=== PATIENT | female | born 1985 | race Caucasian/White ===

== ENCOUNTER 2018-10-26 16:48 | Day surgery (SDC) | payer SELFPAY ==
[~2018-10-26] VITALS: Ht 165.1 cm; Wt 90.0 kg
[2018-10-26] VITALS (8 sets, daily range): BP systolic 107–130; BP diastolic 56–76; PULSE 61–74; TEMP 97.3–98.3
[~2018-10-26 16:48] MED LIST: CEFTIN 250250 MG/TAB PO; CEPHALEXIN500 M1 PO; DOXYCYCLINE 10100 MG PO; NO HOME MEDICATIONS; VANTIN100 MG PO; ZOFRAN ODT4 MG PO
[2018-10-26] MEDS ORDERED: IBU600 MG PO (17:23)
--- NOTE | 2018-10-26 19:30 | NUR ---
RECEIVED FROM PACU, ALERT AND ORIENTED FEMALE, POST CYSTOSCOPY, LASER STONE ABLATION, URETEROSCOPY AND LEFT STENT PLACEMENT. HAS IV SITE TO RIGHT FOREARM WITH IVF INFUSING WITHOUT REDNESS OR SWELLING. FRIENDS AT BEDSIDE. VOIDED 200CC OF BLOODY URINE, STRAINED WITHOUT FINDINGS.
--- NOTE | 2018-10-26 21:09 | NUR ---
COMPLAINING OF LEFT FLANK PAIN RADIATING AROUND MIDDLE ABDOMEN. MEDICATED WITH PERCOCET 1 TAB PO AT THIS TIME. VSS. TAKING FOODS AND FLUIDS WITHOUT PROBLEM.
--- NOTE | 2018-10-26 22:30 | NUR ---
REPORTS PAIN HAS LESSENED AND IS WANTING TO DISCHARGE. REMOVED IV SITE, ANGIOCATH INTACT. REVIEWED DISCHARGE INSTRUCTIONS WITH PATIENT, NO QUESTIONS AT THIS TIME. PATIENT'S FRIEND PICKED UP HER DISCHARGE MEDICATIONS FOR HER, NORCO AND PYRIDIUM.
--- NOTE | 2018-10-26 22:45 | NUR ---
DISCHARGED TO PRIVATE VEHICLE PER W/C, ACCOMPANIED BY SURGICAL STAFF. BELONGINGS SENT WITH PATIENT WELL COPY OF DISCHARGE INSTRUCTIONS.
== END 2018-10-26 22:45 | disposition home or self-care (01) ==
LOC: SDCO 16:48 → SURG 19:30 → SDCO 22:45
DX: N20.1 Calculus of ureter (principal); R35.0 Frequency of micturition; R35.1 Nocturia; Z86.711 Personal history of pulmonary embolism; F17.210 Nicotine dependence, cigarettes, uncomplicated; Z80.9 Family history of malignant neoplasm, unspecified; Z79.899 Other long term (current) drug therapy
CPT/HCPCS: C1769; C1894; C2617; J0690; J1100; J1885; J2250; J2405; J2704; J3010; J7120; Q9967